=== PATIENT | male | born 1945 | race Caucasian/White ===

== ENCOUNTER 2018-04-06 08:50 | Emergency (ER) | payer OTHER, MEDICARE ==
[~2018-04-06] VITALS: Ht 185.4 cm; Wt 100.4 kg
[~2018-04-06 08:50] MED LIST: ACIFEX PO; VALA1TAB PO
[2018-04-06 08:55] VITALS: TEMP 36.7; Ht 185.4 cm; Wt 100.4 kg
[2018-04-06] MEDS ORDERED: RABE20TA5 PO (09:17)
[2018-04-06] MEDS ORDERED: LIDOCAINE 1% BUFFERED INJ 20 ML VIAL INFIL ONE (09:45)
[2018-04-06] MEDS ORDERED: DIPHTHERIA/TETANUS/PERTUSSIS 0.5 ML SYR/VIAL IM. ONE (09:45)
[2018-04-06] MEDS ORDERED: CEPH500C2 PO (10:05)
[2018-04-06 10:10] VITALS: BP 168/91; PULSE 58; O2SAT 96
--- NOTE | 2018-04-07 07:35 | EMERGENCY ROOM VISIT NOTE ---
ED Visit Note First contact with patient: 09:09 Chief Complaint: I cut my left hand. History of Present Illness: Mr. Valera is a 72-year-old white male who ambulates into the ED complaining of left hand laceration. Patient reports less than an hour ago he accidentally cut his left hand with a box car checker; he reports he was putting up a sign for a local golf tournament and cutting the excessive material off the sign and accidentally struck his left hand. Prior to arrival at the hospital he did control bleeding but did not clean his wound. Associated with his wound he reports he has a stinging pain in the area of the laceration. He rates his discomfort 2/10. His pain is nonradiating. His pain worsens with palpation. He has not identified any alleviating factors related to the pain. He has not taken any medication for pain prior to arrival at the hospital. He denies any associated symptoms including other hand pain, hand/ finger weakness/numbness/tingling. Review of Systems: As noted above in history of present illness. Past Medical History: Gastric reflux. Current Medications: AcipHex. Allergies to Medications: Patient denies. Social History: Patient is currently retired; he feels safe in his home environment; he denies tobacco use. Tetanus Immunization Status: Patient reports greater than 10 years. Physical Examination: Vital Signs: Date Time Temp Pulse Resp B/P (MAP) Pulse Ox O2 Delivery O2 Flow Rate FiO2 04/06/18 10:10 58 16 168/91 96 04/06/18 08:55 36.7 60 18 162/81 95 Room Air GENERAL: 72-year-old male in mild distress due to pain, nontoxic-appearing, afebrile and hemodynamically stable. NEUROLOGICAL: Awake, alert and oriented to person, place and time. Answering questions appropriately and following commands. SKIN: Warm, dry and pink. Left Hand: 2.9 cm full-thickness laceration over the dorsal aspect of the second MCP joint with exposure of the extensor tendon. LEFT HAND: Soft tissue injury as noted above under SKIN. No gross bony deformity. No active bleeding of his laceration. Full range of motion and muscle strength in flexion and extension of the second and third MCP joints, PIP joints and DIP joints. Throughout the thumb, index and middle fingers the skin was warm and pink and capillary refill was brisk. He was able to distinguish light sensations to all dermatomes. ED Course: Patient is assessed as noted above. Patient's medication list was reviewed. Wound Repair: Complexity: Basic: Verbal consent was obtained after the risks and benefits were explained. The skin was prepped with betadine and a sterile field set. Wound edges of the wound was anesthetized with 2.4 ml buffered 1% lidocaine. The wound was explored for foreign bodies and none found. The extensor tendon was extensively evaluated and showed no injury. Copious irrigation was performed using sterile saline. With direct pressure the bleeding subsided. Debridement was not performed. The wound edges were approximated using 5-0 Ethilon with 7 simple interrupted sutures. Hemostasis and excellent approximation was achieved. Antibacterial ointment and a sterile dressing applied. No complications and the patient tolerated the procedure well. Patient was educated about tonight's findings and instructed on his treatment plan; he verbalizes understanding and agreement with this plan. Clinical Impression: Laceration of the left hand. Disposition: Patient discharged home in stable condition; prior to departure he was reassessed and subjectively reported he was pain and symptom-free. Plan: Comfort measures, wound care, and signs of infection were discussed with the patient. Patient was encouraged to follow-up with PCP or return to the ED for signs of infection and/or suture removal in 10-12 days.
== END 2018-04-06 10:12 | disposition home or self-care (01) ==
LOC: C.EDB 08:51
DX: S61.412A Laceration without foreign body of left hand, initial encounter (principal); W26.8XXA Contact with other sharp object(s), not elsewhere classified, initial encounter; K21.9 Gastro-esophageal reflux disease without esophagitis; Z79.899 Other long term (current) drug therapy